=== PATIENT | female | born 1970 | race Caucasian/White ===

== ENCOUNTER → 2021-02-14 | Outpatient (CLI) | payer OTHER ==
[~2021-02-14] MED LIST: DOCU100 PO; OMEP20ER PO; OXYC5 PO; PANT20 PO
== END | disposition home or self-care (01) ==
LOC: PLD 13:42 → LAB SHORT 13:42
DX: L82.1 Other seborrheic keratosis (principal)
CPT/HCPCS: 88305

== ENCOUNTER 2021-04-01 08:01 | Day surgery (SDC) | payer OTHER ==
[~2021-04-01] VITALS: Ht 165.1 cm; Wt 77.1 kg
[~2021-04-01 08:01] MED LIST changes: -DOCU100 PO; -OXYC5 PO; -PANT20 PO
--- NOTE | 2021-04-01 08:34 | NUR ---
Ambulatory in Day Surgery Patient states colon prep results clear. Patient confirms NPO status and agrees with scheduled surgery. History, Chart, Medications and Allergies reviewed before start of procedure. Lungs clear T/O to Auscultation. TEST NEGATIVE.
--- NOTE | 2021-04-01 08:52 | NUR ---
04/01/21 0852 Monica Gaona History, Chart, Medications and Allergies reviewed before start of procedure. Patient confirms NPO status and agrees with scheduled surgery. PATIENT DETERMINED TO BE ASA APPROPRIATE FOR PROPOFOL SEDATION PRIOR TO START OF PROCEDURE BY DR. ACOSTA 3-LEAD EKG REVIEWED WITH PHYSICIAN PRIOR TO START OF PROCEDURE. MONITOR INTACT WITH CONTINUOUS PULSE OXIMETRY AND INTERMITTENT BP. SUPPLEMENTAL O2 TO BE TITRATED THROUGHOUT PROCEDURE TO MAINTAIN O2 SATURATION ABOVE 90%.
--- NOTE | 2021-04-01 09:30 | NUR ---
PT LETHARGIC UPON RETURN TO STEP DOWN FROM SCOPE ROOM. AWAKES EASILY AND ANSWERS QUESTIONS.
--- NOTE | 2021-04-01 09:35 | NUR ---
DR ACOSTA AT BEDSIDE TO EXPLAIN FINDINGS
--- NOTE | 2021-04-01 09:36 | NUR ---
PT MORE AWAKE, SIPPING ON FLUIDS AT THIS TIME
--- NOTE | 2021-04-01 09:42 | NUR ---
REVIEWED DISCHARGE INSTRUCTIONS WITH PATIENT WHO VERBALIZES UNDERSTANDING OF ALL INSTRUCTIONS GIVEN. IV DC TIP INTACT.
--- NOTE | 2021-04-01 09:50 | NUR ---
PT DRESSED SELF WITHOUT DIFFICULTY. HERE TO DRIVE HER HOME. PT STATES NO C/O PAIN OR DISCOMFORT. NO NAUSEA.
[2021-05-15] MEDS ORDERED: PANT20 PO (14:03)
== END 2021-04-01 22:56 | disposition home or self-care (01) ==
LOC: ORSCMMR 08:01 → ORD 09:00 → ORSCMMR 22:56 → ORD 04-03 09:00
PROVIDERS: Internal Medicine Gastroenterology
PROC: 0DBN8ZX Excision of Sigmoid Colon, Via Natural or Artificial Opening Endoscopic, Diagnostic (ICD-10-PCS; principal; 2021-04-01 09:00)
PROC: 0DBK8ZX Excision of Ascending Colon, Via Natural or Artificial Opening Endoscopic, Diagnostic (ICD-10-PCS; principal; 2021-04-01 09:00)
PROC: 0DBH8ZX Excision of Cecum, Via Natural or Artificial Opening Endoscopic, Diagnostic (ICD-10-PCS; principal; 2021-04-01 09:00)
DX: Z12.11 Encounter for screening for malignant neoplasm of colon (principal); D12.2 Benign neoplasm of ascending colon; D12.0 Benign neoplasm of cecum; D12.5 Benign neoplasm of sigmoid colon; K57.30 Diverticulosis of large intestine without perforation or abscess without bleeding; K21.9 Gastro-esophageal reflux disease without esophagitis; Z79.899 Other long term (current) drug therapy; F17.210 Nicotine dependence, cigarettes, uncomplicated
CPT/HCPCS: 88305; J2704; J7120

== ENCOUNTER 2021-05-20 08:24 | Inpatient (IN) | payer OTHER ==
[~2021-05-20] VITALS: Ht 167.6 cm; Wt 77.0 kg
[~2021-05-20 08:24] MED LIST changes: +PANT20 PO
--- NOTE | 2021-05-20 10:04 | NUR ---
Ambulatory in Day Surgery. History, Chart, Medications and Allergies reviewed before start of procedure. Lungs clear T/O to Auscultation. Patient confirms NPO status and agrees with scheduled surgery. Pre-Op teaching done. Pt verbalizes understanding.
--- NOTE | 2021-05-20 22:00 | NUR ---
NAUSEA: PT HAVING MULTIPLE EPISODES OF NAUSEA/VOMITING. DR GAONA NOTIFIED, NEW ORDERS RECEIVED.
--- NOTE | 2021-05-21 06:35 | NUR ---
POD 1 S/P EX LAP+HERNIA REP. PT VSS. INCISIONS W/SMALL AMT SS DRNG, ABD BINDER ANS ABD PAD IN PLACE. PT STRUGGLED W/N/V FOR FIRST PART OF SHIFT, PHENERGAN GIVEN W/REP RLEIEF, PT DENIED NAUSEA THIS AM. 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 FOELY CATH D/C EARLY THIS AM; AWAITING FIRST VOID. IVF CONT PER ORDERS. PT UP TO SOB W/MIN ASSIST, BLADIMIR WELL. PLAN TO MOBILIZE TODAY PT BLADIMIR.
--- NOTE | 2021-05-21 17:56 | NUR ---
SHIFT SUMMARY PT WAS UPBEAT THIS AM. ABLE TO AMBULATE TO BATHROOM TO VOID WITH TOLERABLE PAIN. TOLERATED REGULAR DIET FOR BREAKFAST BUT UNFORTUNATELY AN HOUR AFTER LUNCH BECAME NAUSEATED & VOMITED. PT WAS ABLE TO TOLERATE AMBULATING IN HALLWAYS AFTER RESTING POST EMESIS. ENCOURAGED FOR ONE MORE WALK IN HALLWAYS BEFORE BED. DINNER TRAY HELD & PT ENCOURAGED TO TAKE SIPS & CHIPS UNTIL NAUSEA IS COMPLETELY RESOLVED.
--- NOTE | 2021-05-22 05:26 | NUR ---
POD 2 S/P EX LAP. PT VSS, INCISION CDI; BINDER IN PLACE. PT CONT TO STRUGGLE W/N/V THIS SHIFT; ALTHOUGH REPORTS SHE FEELS BETTER AFTER VOMITING. MED FOR NAUSEA X1; DECLINED ADDITIONAL NEED FOR NAUSEA MEDS. PT ENC TO MINIMIZE PO INTAKE R/T NAUSEA. PT ATE BANANA AND REPORTS HAD SEVERAL CUPS OF WATER W/SEVERAL EPISODES OF EMESIS AFTER. BT REMAIN HYPO, ABD MILDLY DISTENDED, PT REP NO FLATUS YET. 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 PT AMB IN HALLS X1; AMB ENCAS PT BLADIMIR.
[2021-05-22 08:12] LABS: BASOPHILS ABSOLUTE AUTO 0.04 K/mm3 (0.00-0.23); BASOPHILS PERCENT AUTO 1 % (0-2); EOSINOPHILS ABSOLUTE AUTO 0.02 K/mm3 (0.00-0.68); EOSINOPHILS PERCENT AUTO 0 % (0-6); IMMATURE GRAN ABSOLUTE AUTO 0.04 K/mm3 (0.00-0.10); IMMATURE GRAN PERCENT AUTO 1 % (0-1); LYMPHOCYTES ABSOLUTE AUTO 1.68 K/mm3 (0.84-5.20); LYMPHOCYTES PERCENT AUTO 22 % (21-46); MONOCYTES ABSOLUTE AUTO 0.54 K/mm3 (0.16-1.47); MONOCYTES PERCENT AUTO 7 % (4-13); Mean Corpuscular HGB 29.3 pg (26.0-34.0); Mean Corpuscular HGB Conc 33.3 g/dL (31.5-36.5); Mean Corpuscular Volume 88 fL (80-100); Mean Platelet Volume 9.8 fL (9.1-12.4); NEUTROPHILS ABSOLUTE AUTO 5.34 K/mm3 (1.96-9.15); NEUTROPHILS PERCENT AUTO 70 % (41-73); Platelet Count 192 K/mm3 (150-400); RDW Coefficient Variation 13.2 % (11.7-14.2); RDW Standard Deviation 40.7 fL (35.1-46.3); Red Blood Cell Count 3.76 M/mm3 (3.80-5.20); White Blood Cell Count 7.66 K/mm3 (4.00-11.30)
[2021-05-22 08:49] LABS: Alanine Aminotransfer (ALT/SGP 14 U/L (12-78); Albumin, Blood 2.9 g/dL (3.4-5.0); Albumin/Globulin Ratio 0.9 (0.8-1.8); Alk Phos 38 U/L (50-136); Anion Gap 3 mmol/L (6-16); Aspartate Aminotrans (AST/SGOT 19 U/L (12-37); Bilirubin, Total 0.6 mg/dL (0.1-1.0); Blood Urea Nitrogen 10 mg/dL (8-24); Bun/Creatinine Ratio 12.9 (12.0-20.0); CO2, Blood 30 mmol/L (21-32); Calcium, Blood 8.2 mg/dL (8.5-10.1); Chloride, Blood 106 mmol/L (98-108); Creatinine, Blood 0.78 mg/dL (0.40-1.00); Globulin, Blood 3.2 g/dL (2.2-4.0); Glomerular Filtration Rate >60 (60-); Glucose, Blood 95 mg/dL (70-99); Magnesium, Blood 1.8 mg/dL (1.6-2.4); Potassium, Blood 3.7 mmol/L (3.5-5.5); Sodium, Blood 139 mmol/L (136-145); Total Protein, Blood 6.1 g/dL (6.4-8.2)
--- NOTE | 2021-05-22 14:33 | NUR ---
SHIFT SUMMARY: POD 2 EXP LAP WITH HERNIA REPAIR PATIENT IS ALERT AND ORIENTED X4. VS ARE WNL AND IS ON RA. PATIENT DENIES PAIN UNLESS SHE IS VOMITING OR HAVING HICCUPS. FOR NAUSEA SHE HAS RECIEVED IV ZOFRAN AND PHENERGAN. PATIENT REPORTS "I'M FEELING A LOT BETTER". SHE WAS ABLE TO EAT A CUP OF YOGURT EARLIER WITHOUT NAUSEA OR VOMITING. WILL CHANGE DIET SHE IS ABLE TO TOLERATE IT. HER MIDLINE INCISION C/D/I WITH WOUND GLUE. HER LLQ OLD OSTOMY SITE IS ALSO C/D/I. ABD PAD IS PLACED UNDERNEATH THE ABD BINDER FOR EXTRA FLUIDS. PATIENT IS INDEPENDANT IN THE ROOM. SHE IS VOIDING AND HAS PASSED GAS TODAY. CALLS APPROPRIATELY. CALL LIGHT WITHIN REACH. THE PLAN IS TO POSSIBLY DISCHARGE HOME TOMORROW IF SHE IS ABLE TO TOLERATE PO INTAKE MORE.
--- NOTE | 2021-05-23 04:25 | NUR ---
SHIFT SUMMARY POD#3 HERNIA REPAIR WITH MESH. ABD INCISIONS WITH WOUND GLUE C/D/I WITH ABD BINDER IN PLACE. AAOX4/ANXIOUS. DISCOMFORT CONTROLLED WITH 2 PAIN PILLS PER ORDERS. NO NAUSEA/EMESIS. ANXIETY DECREASED WITH X1 0.5MG PO ATIVAN. PT REPORTING FLATUS YESTARDAY EVENING. INDEPENDENT IN ROOM. GOOD PO INTAKE + OUTPUT. NO ACUTE CHANGES OVER NIGHT. PT RESTING WELL THIS NOC SHIFT WITH CALL LIGHT IN REACH.
--- NOTE | 2021-05-23 11:16 | NUR ---
AM ASSESSMENT: PATIENT REPORTS PAIN AND SWELLING IN R ARM HAS DECREASED SINCE IV WAS REMOVED PREVIOUS SHIFT. ARMS WNL BILATERALLY. ADVANCING DIET TOLERATED. DR. GAONA STATED IF SHE TOLERATES LUNCH SHE CAN D/C. PATIENT TOOK A MORNING WALK THROUGH THE HALLWAY AND THEN RESTED.
[2021-05-23] MEDS ORDERED: OXYC5 PO (11:45)
[2021-05-23] MEDS ORDERED: DOCU100 PO (11:57)
--- NOTE | 2021-05-23 16:25 | NUR ---
DISCHARGE PT LEFT VIA WHEELCHAIR AT APPROX 1545. PT PAIN MANAGED PER WITH PO PAIN MEDICATIONS. PT DENIES NAUSEA TODAY AND HAS BEEN EATING WELL. UP AND VOIDING IND IN ROOM. AMBULATES IN THE HALLS INDEPENDENTLY. IV REMOVED PRIOR TO DISCHARGE AND SITE WAS WN. ABD BINDER IN PLACE FOR PATIENT COMFORT. PT REPORTS FLATUS AND BM DURING SHIFT. ALL SCRIPTS SENT WITH PATIENT, DISCHARGE INSTRUCTIONS GONE OVER WITH PATIENT AND SPOUSE.
== END 2021-05-23 15:47 | disposition home or self-care (01) | DRG 355 ==
LOC: ORSCMMR 08:24 → ORD 10:00 → ORSCMMR 10:00 → SURS 14:46 → ORSCMMR 14:47 → SURS 05-23 15:47
PROVIDERS: ADMIT Surgery
PROC: 0HB7XZZ Excision of Abdomen Skin, External Approach (ICD-10-PCS; 2021-05-20)
PROC: 0WUF0JZ Supplement Abdominal Wall with Synthetic Substitute, Open Approach (ICD-10-PCS; principal; 2021-05-20 10:00)
DX: K43.2 Incisional hernia without obstruction or gangrene (principal); L91.0 Hypertrophic scar; K91.0 Vomiting following gastrointestinal surgery; K21.9 Gastro-esophageal reflux disease without esophagitis; E78.5 Hyperlipidemia, unspecified; D50.9 Iron deficiency anemia, unspecified; Z90.49 Acquired absence of other specified parts of digestive tract; Z98.890 Other specified postprocedural states; Z87.891 Personal history of nicotine dependence; Z79.899 Other long term (current) drug therapy
CPT/HCPCS: 36415; 80053; 83735; 85025; A9270; C1781; C9113; J0690; J1100; J1170; J1650; J1885; J2250; J2370; J2405; J2550; J2704; J3010; J7040; J7120

== ENCOUNTER → 2023-02-11 | Outpatient (CLI) | payer OTHER ==
[~2023-02-11] MED LIST changes: +DOCU100 PO; +OXYC5 PO
[2023-02-14 14:11] LABS: HPV 16 Negative (Negative); HPV 18 Negative (Negative); HPV OTHER HR TYPES Negative (Negative)
== END | disposition home or self-care (01) ==
LOC: LAB 11:41 → LAB SHORT 11:41
PROVIDERS: Obstetrics & Gynecology
DX: Z01.411 Encounter for gynecological examination (general) (routine) with abnormal findings (principal)
CPT/HCPCS: 87624; G0145

== ENCOUNTER 2024-09-22 08:04 | Day surgery (SDC) | payer OTHER ==
[2024-09-22] VITALS (9 sets, daily range): BP systolic 112–133; BP diastolic 77–97
[~2024-09-22] VITALS: Ht 167.6 cm; Wt 77.6 kg
[~2024-09-22 08:04] MED LIST changes: +Benzocaine Oral Spray 0.5ML UD ONE; +Budeprion Xl300 MG PO; +CLIMARA1 EACH TOP; +METF500 PO; +NALTREX1.5 MG PO; +NS 500 ML IV SCH; +PANT40 PO; +PROG100 PO
[2024-09-22] MEDS ORDERED: Midazolam HCl 1MG / ML 2ML Vial ONE (08:44)
[2024-09-22] MEDS ORDERED: propofoL 20 ML IV ONE (08:45)
--- NOTE | 2024-09-22 08:47 | NUR ---
History, Chart, Medications and Allergies reviewed before start of procedure. Patient confirms NPO status and agrees with scheduled surgery. Pre-Op teaching done. Pt verbalizes understanding. Patient States Post-Procedure ride home has been arranged. Lungs clear T/O to Auscultation.
--- NOTE | 2024-09-22 08:48 | NUR ---
09/22/24 0848 Shikha Scott CONFIRMED AND REVIEWED H&P, MEDCICATIONS, ALLERGIES, MEDICAL HISTORY, RESPIRATORY HISTORY, VITAL SIGNS, 3-LEAD EKG, CONSENTS, AND PHYSICIAN ORDERS. PATIENT CONFIRMS NPO STATUS AND AGREES WITH SCHEDULED PROCEDURE. MONITOR INTACT WITH CONTINUOUS PULSE OXIMETRY, CAPNOGRAPHY, 3-LEAD EKG, INTERMITTENT BP. SUPPLEMENTAL O2 TO BE TITRATED THROUGHOUT PROCEDURE TO MAINTAIN O2 SATURATION ABOVE 90%. PATIENT DETERMINED TO BE ASA APPROPRIATE FOR PROPOFOL SEDATION PRIOR TO START OF PROCEDURE BY DR. ACOSTA
--- NOTE | 2024-09-22 09:17 | NUR ---
REPORT RECEIVED FROM ALICIA BAUER. VSS. PT ON RA. PT ABLE TO REPOSITION SELF IN BED. PT REQUESTING PO FLUIDS AND TOLERATING THEM WELL. PT DENIES PAIN, NAUSEA OR OTHER DISCOMFORTS.
--- NOTE | 2024-09-22 09:38 | NUR ---
Patient up to Ambulate independently. Gait steady. VSS AND CONSISTENT WITH PT BASELINE. PT HAS NO COMPLAINTS AND VERBALIZES READINESS TO GO HOME. Discharge instructions reviewed with patient AND HER SPOUSE. Patient AND SPOUSE verbalize understanding. Copy given to patient to take home. Patient States Post-Procedure ride home has been arranged. Discharged via wheelchair to private car for ride home. PT BELONGINGS RETURNED TO PT.
== END 2024-09-22 09:40 | disposition home or self-care (01) ==
LOC: ORSCMMR 08:04 → ORD 09:00 → ORSCMMR 09:40
PROVIDERS: Internal Medicine Gastroenterology
PROC: 0DB68ZX Excision of Stomach, Via Natural or Artificial Opening Endoscopic, Diagnostic (ICD-10-PCS; principal; 2024-09-22 09:00)
PROC: 0DB48ZX Excision of Esophagogastric Junction, Via Natural or Artificial Opening Endoscopic, Diagnostic (ICD-10-PCS; principal; 2024-09-22 09:00)
PROC: 0DB98ZX Excision of Duodenum, Via Natural or Artificial Opening Endoscopic, Diagnostic (ICD-10-PCS; principal; 2024-09-22 09:00)
DX: R11.2 Nausea with vomiting, unspecified (principal); R10.13 Epigastric pain; K21.00 Gastro-esophageal reflux disease with esophagitis, without bleeding; K29.50 Unspecified chronic gastritis without bleeding; Z87.891 Personal history of nicotine dependence; R73.03 Prediabetes; F32.A Depression, unspecified; K62.5 Hemorrhage of anus and rectum; Z79.84 Long term (current) use of oral hypoglycemic drugs; Z79.899 Other long term (current) drug therapy
CPT/HCPCS: 88305; 88342; A9270; J2250; J2704; J7040

== ENCOUNTER 2025-05-17 06:00 | Emergency (ER) | payer OTHER ==
[~2025-05-17] VITALS: Ht 165.1 cm; Wt 79.4 kg
[~2025-05-17 06:00] MED LIST changes: -Benzocaine Oral Spray 0.5ML UD ONE; -NS 500 ML IV SCH
[2025-05-17 06:14] VITALS: BP 118/80
== END 2025-05-17 07:17 | disposition home or self-care (01) ==
LOC: ER 06:00
DX: T63.441A Toxic effect of venom of bees, accidental (unintentional), initial encounter (principal); R22.42 Localized swelling, mass and lump, left lower limb; Z79.899 Other long term (current) drug therapy
CPT/HCPCS: 99282